=== PATIENT | male | born 1980 | race Two or more races ===

== ENCOUNTER 2023-02-17 11:11 | Emergency (ER) | payer OTHER ==
[~2023-02-17] VITALS: Ht 170.2 cm; Wt 63.5 kg
[2023-02-17 13:56] LABS: URINE APPEARANCE Cloudy; URINE BILIRRUBIN Negative (NEGATIVE); URINE BLOOD Large; URINE COLOR Yellow; URINE GLUCOSE Negative (NEGATIVE); URINE LEUKOCYTE Small; URINE NITRATE Negative; URINE PROTEIN 30 (NEGATIVE)
[2023-02-17 13:58] LABS: HEMATOCRIT 46.6 % (39.0-48.0); HEMOGLOBIN 16.1 g/dL (13-16.00); MEAN CELL VOLUME 92.3 fL (80.0-100.00); MEAN CORPUSCULAR HEMOGLOBIN 31.8 pg (27.00-32.0); MEAN CORPUSCULAR HGB CONC 34.5 g/dl (32.0-36.0); PLATELET COUNT 338 K/uL (150-450); RED BLOOD COUNT 5.05 M/uL (4.00-6.00); RED CELL DISTRIBUTION WIDTH 14.3 % (11.5-14.5)
[2023-02-17 14:00] LABS: URINE BACTERIA 37.7 uL (0.0-1933); URINE WBC 20.3 uL (0.0-23.2)
[2023-02-17 14:21] LABS: INR 0.99; PARTIAL THROMBOPLASTIN TIME 26.4 SECONDS (22.0-34.0); PROTHROMBIN TIME 10.4 SECONDS (9.0-11.5)
[2023-02-17 14:25] LABS: ALBUMIN 3.7 gm/dL (3.4-5.0); BILIRUBIN TOTAL 1.7 mg/dL (0.3-1.2); CALCIUM 9.6 mg/dL (8.5-10.1); CREATININE SERUM 0.87 mg/dL (0.70-1.30); GFR 96.23; POTASSIUM 4.28 mEq/L (3.5-5.1); TOTAL PROTEIN 7.7 gm/dL (6.4-8.2)
== END 2023-02-17 20:37 | disposition home or self-care (01) ==
LOC: ER 11:11
PROVIDERS: Emergency Medicine
DX: R31.9 Hematuria, unspecified (principal)
CPT/HCPCS: 36415; 74177; Q9965

== ENCOUNTER 2023-05-16 16:33 | Emergency (ER) | payer OTHER ==
[~2023-05-16] VITALS: Ht 170.2 cm; Wt 64.4 kg
[2023-05-16] MEDS ORDERED: ADDERALL 10 MG10 MG (17:06)
[2023-05-16] MEDS ORDERED: SINGULAIR10 MG PO (17:06)
[2023-05-16] MEDS ORDERED: SYMBICORT 16010.2 GM (17:06)
[2023-05-16 18:06] LABS: URINE BILIRRUBIN Negative (NEGATIVE); URINE BLOOD Moderate; URINE COLOR Yellow; URINE GLUCOSE Negative (NEGATIVE); URINE LEUKOCYTE Negative; URINE NITRATE Negative; URINE PROTEIN Negative (NEGATIVE)
[2023-05-16 18:15] LABS: HEMATOCRIT 44.6 % (39.0-48.0); HEMOGLOBIN 15.4 g/dL (13-16.00); MEAN CELL VOLUME 93.4 fL (80.0-100.00); MEAN CORPUSCULAR HEMOGLOBIN 32.2 pg (27.00-32.0); MEAN CORPUSCULAR HGB CONC 34.5 g/dl (32.0-36.0); PLATELET COUNT 329 K/uL (150-450); RED BLOOD COUNT 4.78 M/uL (4.00-6.00); RED CELL DISTRIBUTION WIDTH 13.4 % (11.5-14.5)
[2023-05-16 18:39] LABS: CALCIUM 9.6 mg/dL (8.5-10.1); CREATININE SERUM 1.07 mg/dL (0.70-1.30); GFR 75.79; POTASSIUM 4.27 mEq/L (3.5-5.1)
[2023-05-16 18:54] LABS: URINE APPEARANCE Clear; URINE BACTERIA 6.2 uL (0.0-1933); URINE RBC 224.3 uL (0.0-20.8)
[2023-05-16 19:00] LABS: URINE EPITHELIAL CELLS 1.2 uL (0.0-38.8)
[2023-05-16] MEDS ORDERED: PERCOGESIC 3251 EACH PO (19:24)
== END 2023-05-16 19:28 | disposition home or self-care (01) ==
LOC: ER 16:33
PROVIDERS: General Practice
DX: N50.812 Left testicular pain (principal); I86.1 Scrotal varices